=== PATIENT | male | born 1945 | race Caucasian/White ===

== ENCOUNTER 2024-01-31 06:43 | Day surgery (SDC) | payer MEDICARE, BC ==
[~2024-01-31] VITALS: Ht 180.3 cm; Wt 80.1 kg
[2024-01-31] VITALS (10 sets, daily range): BP systolic 117–138; BP diastolic 56–67; PULSE 42–56; RESP 16; TEMP 97.7; O2SAT 95–99
[2024-01-31] MEDS ORDERED: sodium bicarbonate 1meq/ml syr 150 ML in dextrose 5%-water 1,000 ML IV SCH (07:15)
[2024-01-31] MEDS ORDERED: PANT40TA54 PO (07:28)
[2024-01-31] MEDS ORDERED: fish oil (07:28)
[2024-01-31] MEDS ORDERED: vitamin c (07:28)
[2024-01-31] MEDS ORDERED: vitamin D3 (07:28)
[2024-01-31] MEDS ORDERED: zinc (07:28)
[2024-01-31] MEDS ORDERED: omega 3 (07:28)
[2024-01-31] MEDS ORDERED: LISI10TA27 PO (07:28)
[2024-01-31] MEDS ORDERED: METO-395 PO (07:28)
[2024-01-31] MEDS ORDERED: TADA20TA43 PO (07:28)
[2024-01-31] MEDS ORDERED: ASPI81TA52 PO (07:28)
[2024-01-31] MEDS ORDERED: NITR0.4T51 SL (07:28)
[2024-01-31] MEDS ORDERED: ATOR40TA72 PO (07:28)
[2024-01-31] MEDS ORDERED: B12 (07:35)
[2024-01-31] MEDS ORDERED: GLUCOTRUST (07:36)
[2024-01-31 07:39] LABS: BASOPHILS # (AUTO) 0.1 X10'3 (0-0.2); BASOPHILS % (AUTO) 0.7 % (0-1); EOSINOPHILS # (AUTO) 0.2 X10'3 (0-0.9); EOSINOPHILS % (AUTO) 2.1 % (0-6); HEMOGLOBIN 13.4 g/dl (14.0-17.9); LYMPHOCYTES # (AUTO) 1.4 X10'3 (1.1-4.8); LYMPHOCYTES % (AUTO) 16.4 % (21-51); MEAN CORPUSCULAR HEMOGLOBIN 30.2 PG (27.0-31.0); MEAN CORPUSCULAR HGB CONC 33.6 g/dL (33.0-36.5); MEAN CORPUSCULAR VOLUME 89.9 FL (78-98); MEAN PLATELET VOLUME 8.2 FL (7.4-10.4); MONOCYTES # (AUTO) 0.7 X10'3 (0-0.9); MONOCYTES % (AUTO) 7.7 % (2-12); NEUTROPHILS # (AUTO) 6.5 X10'3 (1.8-7.7); NEUTROPHILS % (AUTO) 73.1 % (42-75); PLATELET COUNT 245 X10'3 (140-440); RED BLOOD COUNT 4.44 X10'6 (4.70-6.10); WHITE BLOOD COUNT 8.8 X10'3 (4.5-11.0)
[2024-01-31 07:51] LABS: ALBUMIN 3.3 G/DL (3.4-5.0); ANION GAP 8 (8-16); BLOOD UREA NITROGEN 19 MG/DL (7-18); BUN/CREATININE RATIO 17.9 (10.0-20.0); CALCIUM 8.7 MG/DL (8.5-10.1); CHLORIDE 111 MMOL/L (99-107); CREATININE 1.06 MG/DL (0.60-1.10); GLUCOSE 105 MG/DL (70-104); POTASSIUM 4.2 MMOL/L (3.5-5.1); SODIUM 144 MMOL/L (135-145); TOTAL CARBON DIOXIDE 24.6 MMOL/L (24-32); eCRCL 62 ML/MIN; eGFR 68 ML/MIN
[2024-01-31 07:55] LABS: PROTHROMBIN TIME 10.4 SECONDS (9.0-12.0)
[2024-01-31] MEDS: diphenhydrAMINE 25mg capsule PO PRN (07:59)
[2024-01-31] MEDS: normal saline 1,000 ML IV SCH (08:01)
[2024-01-31] MEDS ORDERED: iohexol 350 MG/ML 50ML vial IV ONE (08:52)
[2024-01-31] MEDS ORDERED: verapamil 2.5 mg/ml inj IV ONE (08:52)
[2024-01-31] MEDS ORDERED: heparin 1,000unit/ml 10ml vial 10 ML ONE (08:52)
[2024-01-31] MEDS ORDERED: midazolam 1 mg/ML 2ml injection ONE ×2 (08:52→09:54)
[2024-01-31] MEDS ORDERED: fentaNYL/PF 50MCG/1 ML 2ML syringe ONE (08:52)
[2024-01-31] MEDS ORDERED: iohexol 350MG/ML 100ml bottle IV ONE (08:53)
[2024-01-31] MEDS ORDERED: LIDOcaine 1% (10mg/ml) 2ml vial ONE (08:54)
[2024-01-31] MEDS ORDERED: nitroGLYCERIN 500mcg/5mL D5W 5 ML IV ONE (08:56)
[2024-01-31] MEDS ORDERED: atropine 0.1mg/ml 10ml syringe ONE (10:03)
[2024-01-31] MEDS ORDERED: HYDROcodone/acetaminophen 10/325mg tab PO PRN (11:05)
[2024-01-31] MEDS ORDERED: ondansetron/PF 4mg/2ml inj IV PRN (11:05)
[2024-01-31] MEDS ORDERED: proCHLORperazine 10 MG/2 ml inj IV PRN (11:05)
[2024-01-31] MEDS ORDERED: HYDROcodone/acetaminophen 5mg/325mg tablet PO PRN (11:05)
== END 2024-01-31 14:30 | disposition home or self-care (01) ==
LOC: SSTAY O 06:43
PROVIDERS: ATTEND Internal Medicine Cardiovascular Disease
DX: R07.9 Chest pain, unspecified (principal); I25.10 Atherosclerotic heart disease of native coronary artery without angina pectoris; I10 Essential (primary) hypertension; E78.5 Hyperlipidemia, unspecified; I25.2 Old myocardial infarction; Z79.899 Other long term (current) drug therapy
CPT/HCPCS: 36415; 80048; 83735; 85025; 85610; 93005; 93458; 99152; A6258; A6402; C1894; J1644; J2001; J2250; J3010; J3490; J7030; Q0163; Q9967; Z7610; 99153; J0461